=== PATIENT | female | born 1960 ===

== ENCOUNTER 2016-06-12 18:57 | Emergency (ER) | payer BC ==
[2016-06-12 19:14] VITALS: BP 137/73; PULSE 75; RESP 18; TEMP 98.2; O2SAT 100
--- NOTE | 2016-06-12 19:53 | UCPHY ---
H & P Time Seen by Provider: 06/12/16 19:30 Patient Type: New HPI/ROS: CHIEF COMPLAINT: Left shoulder pain HISTORY OF PRESENT ILLNESS: 56-year-old female presents to the emergency department reporting that yesterday while she was moving a heavy piece of luggage she developed pain in her left shoulder. Patient indicates the pain is on the posterior aspect of the humeral head. Pain has been worsening throughout today. Patient reports pain spreading from the posterior aspect around to the anterior aspect and up onto her neck. She has great difficulty moving the arm and pain. No direct trauma. She was otherwise well. Denies chest pain, shortness of breath , palpitations, numbness or tingling in the arm, weakness in the hands, or numbness and tingling on the face. No fever, chills, chest pain, shortness of breath, palpitations, vomiting, diarrhea, urinary complaints, headache, lightheadedness. REVIEW OF SYSTEMS: Aside from elements discussed in the HPI, a comprehensive 10-point review of systems was reviewed and is negative. PAST MEDICAL HISTORY: Urinary tract infections. SOCIAL HISTORY: Primary language is [place]. Nonsmoker. VITAL SIGNS: see nurse's notes. GENERAL: Well-developed, well-nourished, appears in discomfort when asked to move the left shoulder. HEENT: Atraumatic. Cranial nerves 2-12 are intact. Normal exam. Neck: supple , FROM. No tenderness over the vertebral bodies. Patient does indicate spasm and soreness in the trapezius on the left. LUNGS: Clear to auscultation bilaterally, no wheezes, rhonchi or rales. CARDIAC: Regular rate and rhythm, no rubs, murmurs or gallops. EXTREMITIES: Limited range of motion at the left shoulder. No specific AC tenderness. Tenderness over the posterior rotator cuff. Patient is unable to raise the arm without discomfort. Normal range of motion at the elbow. Normal range of motion at the wrist. Normal radial, median, ulnar sensation of motion at the hand. NEURO: Alert and oriented, grossly nonfocal. SKIN: Warm and dry, no rash. Smoking Status: Never smoked Constitutional: Initial Vital Signs Temperature (C) 36.8 C 06/12/16 19:11 Heart Rate 75 06/12/16 19:11 Respiratory Rate 18 06/12/16 19:11 Blood Pressure 137/73 H 06/12/16 19:11 O2 Sat (%) 100 06/12/16 19:11 O2 Delivery Mode Room Air Allergies/Adverse Reactions: No Known Allergies Allergy (Unverified 06/12/16 19:11) Home Medications: Medication Instructions Recorded Hydrocodone/APAP 5/325 [Jackson 1 tab PO Q6H PRN #10 tab 06/12/16 5/325 (RX)] Medical Decision Making - Diagnostics Imaging: X-ray: Left shoulder x-ray was obtained. I viewed the images myself on the PACS system. My interpretation of the images is: No acute findings. The radiologist interpretation is pending at this time. I discussed the x-ray findings with the patient. ED Course/Re-evaluation: Patient received Toradol 60 mg IM. She received a prepack of hydrocodone. She was placed in a sling. I suspect the patient may have a rotator cuff injury. She was given a work excuse and asked to follow up with Dr. Medel. Differential Diagnosis: Differential diagnosis for the patient's injury was considered including but not limited to contusion, abrasion, laceration, fracture, open fracture, or dislocation. - Data Points Medications Given: Discontinued Medications Acetaminophen/Hydrocodone Bitart (Jackson 5/325mg Prepack#6) 1 btl TAKEHOME EDNOW ONE Stop: 06/12/16 19:55 Last Admin: 06/12/16 19:59 Dose: 1 btl Ketorolac Tromethamine (Toradol) 60 mg IM EDNOW ONE Stop: 06/12/16 19:55 Last Admin: 06/12/16 20:00 Dose: 60 mg Departure - Departure Disposition: Home, Routine, Self-Care Clinical Impression: Possible rotator cuff injury Shoulder pain, left Qualifiers: Chronicity: acute Qualifier Code: (M25.512) Pain in left shoulder Condition: Good Instructions: Hydrocodone/Acetaminophen (By mouth), Rotator Cuff Injury (ED), Shoulder Sprain (ED), Shoulder Pain (ED) Additional Instructions: You may have injured her rotator cuff. Please keep the arm in a sling until it is improving I recommend Ibuprofen (Motrin, Advil) or Naproxen Sodium (Aleve) for mild-to- moderate pain and anti-inflammatory effects. You may take either one, but do not take both. Your dose is: Ibuprofen 600 mg every 6-8 hours with food. OR Naproxen Sodium (Aleve) 220 mg every 12 hours. You may use hydrocodone as needed for more severe pain. 1 tablet every 4-6 hours. Follow up with orthopedic surgeon as directed this week. Referrals: [place],. [Primary Care Provider] - As per Instructions Kendall Medel MD [Medical Doctor] - As per Instructions (Call for follow-up appointment this week. Be sure they know this is an emergency department follow -up visit.) Stand Alone Forms: Work Excuse Prescriptions: Hydrocodone/APAP 5/325 [Jackson 5/325 (RX)] 1 tab PO Q6H PRN #10 tab PRN Reason: Pain - PQRS PQRS Measurement: Not applicable
[2016-06-12] MEDS ORDERED: KETOROLAC 30 MG/1 ML SDV IM ONE (19:54)
[2016-06-12] MEDS ORDERED: HYDROCOD/APAP 5/325 PREPACK#6 BTL TAKEHOME ONE (19:54)
--- NOTE | 2016-06-12 22:44 | DX ---
Left Shoulder Series, Three Views History: Pain without trauma. Findings: Osseous structures are intact without fracture or dislocation. The glenohumeral joint and A C joint are normal. Soft tissues are normal. Impression: Normal left shoulder series.
== END 2016-06-12 20:05 | disposition home or self-care (01) ==
LOC: CED 18:57
DX: M25.512 Pain in left shoulder (principal)
CPT/HCPCS: 73030-PO; 99203-PO; G0463-PO; J1885